=== PATIENT | male | born 1950 | race Caucasian/White ===

== ENCOUNTER 2021-12-04 10:33 | Emergency (ER) | payer OTHER ==
[~2021-12-04] VITALS: Ht 172.7 cm; Wt 57.8 kg
[~2021-12-04 10:33] MED LIST: TRAM50TA1 PO; [UNRECOGNIZED DRUG - REMARK]
[2021-12-04 10:42] VITALS: BP 162/62
--- NOTE | 2021-12-04 10:53 | NUR ---
DR DOLAN AT BEDSIDE
[2021-12-04] MEDS ORDERED: NACL 0.9% 1,000 ML IV ONE ×2 (10:55)
[2021-12-04] MEDS ORDERED: ONDANSETRON 4 MG/2 ML VIAL IVP ONE (10:55)
[2021-12-04] MEDS ORDERED: MORPHINE SULFATE 4 MG/ML SYR IVP ONE (10:55)
--- NOTE | 2021-12-04 11:01 | NUR ---
PT AMBULATED TO BATHROOM WITH STEADY GAIT
--- NOTE | 2021-12-04 11:19 | NUR ---
PT TAKEN TO CT VIA [facility]
--- NOTE | 2021-12-04 11:20 | NUR ---
71 Y/O MALE BIB SON C/O OF RIGHT FLANK PAIN RADIATING TO THE MID ABD AND PELVIS AND [id number]. STATES THAT PAIN EXACERBATED BY EATING, DENIES ANY PAIN, FEVER, DIARRHEA AND VOMITING. SEEN BY PCP AND REFERRED TO GET AN ULTRASOUND GERARDA HX:ARTHRITIS, NEPHROLITHIASIS, HTN
[2021-12-04 11:58] LABS: BASOPHILS % (AUTO) 0.3 % (0.0-2.0); EOSINOPHILS # (AUTO) 0.3 K/uL (0-0.4); EOSINOPHILS % (AUTO) 4.6 % (0.0-4.0); HEMATOCRIT 41.7 % (36-52); LYMPHOCYTES # (AUTO) 1.3 K/uL (2.0-11.5); LYMPHOCYTES % (AUTO) 22.7 % (20.5-51.1); MEAN CORPUSCULAR HEMOGLOBIN 29 pg (27-31); MEAN CORPUSCULAR HGB CONC 34 g/dL (33-37); MEAN CORPUSCULAR VOLUME 85.9 fL (80-94); MONOCYTES # (AUTO) 0.4 K/uL (0.8-1.0); MONOCYTES % (AUTO) 7.8 % (1.7-9.3); NEUTROPHILS # (AUTO) 3.7 K/uL (1.8-7.7); NEUTROPHILS % (AUTO) 64.6 % (42.2-75.2); PLATELET COUNT (AUTO) 196 K/uL (140-450); RED BLOOD CELL COUNT(AUTO) 4.85 MIL/uL (4.20-6.10); RED CELL DISTRIBUTION WIDTH 15.2 % (11.6-13.7); WHITE BLOOD COUNT (AUTO) 5.7 K/uL (4.8-10.8)
[2021-12-04 12:06] LABS: APPEARANCE,URINE CLEAR (CLEAR); BILIRUBIN,URINE NEGATIVE (NEGATIVE); BLOOD, URINE 1+ (NEGATIVE); COLOR,URINE YELLOW (YELLOW); LEUKOCYTE ESTERASE ,URINE NEGATIVE (NEGATIVE); NITRITE, URINE NEGATIVE (NEGATIVE); UGLUCOSE NEGATIVE (NEGATIVE)
[2021-12-04 12:18] LABS: ALBUMIN 3.6 g/dL (3.4-5.0); ANION GAP 11.2 (8-16); CARBON DIOXIDE 27.8 mmol/L (21-32); CREATININE 0.8 mg/dL (0.6-1.3); TOTAL BILIRUBIN 0.4 mg/dL (0.0-1.0)
[2021-12-04] MEDS ORDERED: CIPR500T4 PO (12:40)
[2021-12-04] MEDS ORDERED: TRAM50TA1 PO (12:40)
[2021-12-04] MEDS ORDERED: ACET-10509 PO (12:40)
[2021-12-04 13:08] LABS: WBC,URINE 0-5 /HPF (0-5)
[2021-12-04 13:09] LABS: TRICHOMONAS,URINE None Seen /HPF (None Seen); YEAST,URINE None Seen /HPF (None Seen)
[2021-12-04 13:26] VITALS: BP 147/74
--- NOTE | 2021-12-04 13:27 | NUR ---
Patient discharged with v/s stable. Written and verbal after care instructions given and explained. Patient alert, oriented and verbalized understanding of instructions. Ambulatory with steady gait. All questions addressed prior to discharge. ID band removed. Patient advised to follow up with PMD. Rx of ULTRAM, TYLENOL given. Patient educated on indication of medication including possible reaction and side effects. Opportunity to ask questions provided and answered.
--- NOTE | 2021-12-06 10:27 | NUR ---
LATE ENTRY. 0.9% NS DISCONTINUED AT 1327 ON 12/04/21
== END 2021-12-04 13:27 | disposition home or self-care (01) ==
LOC: MED 10:33
DX: R10.13 Epigastric pain (principal); R31.9 Hematuria, unspecified; Z79.899 Other long term (current) drug therapy; Z87.442 Personal history of urinary calculi
CPT/HCPCS: 36415; 74176; 80053; 81001; 85025; 87086; 96361; 96374; 96375; 99284; J2270; J2405; J7030